=== PATIENT | male | born 1970 | race African-American/Black ===

== ENCOUNTER 2019-02-10 07:53 | Emergency (ER) | payer SELFPAY ==
[~2019-02-10] VITALS: Ht 175.3 cm; Wt 89.0 kg
[2019-02-10] MEDS ORDERED: ONDANSETRON HCL 4MG/2ML INJ IV STA (09:28)
[2019-02-10] MEDS ORDERED: MORPHINE SULFATE 4 MG/ML CPJ (NOT FOR IM USE) IV STA (09:28)
[2019-02-10] MEDS ORDERED: SODIUM CHLORIDE 0.9% 1,000 ML IV ONE (09:28)
[2019-02-10 13:17] LABS: BASOPHILS % 0.9 % (0.0-2.0); EOSINOPHILS % 1.2 % (0.0-5.0); HEMATOCRIT. 45.9 % (42.0-52.0); HEMOGLOBIN. 15.1 g/dL (14.0-18.0); MEAN CORPUSCULAR HEMOGLOBIN 26.3 pg (28.0-32.0); MEAN CORPUSCULAR VOLUME 80.1 fL (80.0-94.0); MEAN PLATELET VOLUME 10.7 fl (7.4-10.4); MONOCYTES % 8.4 % (2.0-8.0); NEUTROPHILS % 62.5 % (40.0-76.0); PLATELET 184 x1000/uL (130-400); RED BLOOD CELL COUNT 5.73 mill/uL (4.7-6.1)
[2019-02-10 13:22] LABS: CHLORIDE 106 mEq/L (98-107); PARTIAL THROMBOPLASTIN TIME 29.9 sec (23.4-31.0); PROTHROMBIN TIME 10.4 sec (9.6-11.0)
[2019-02-10] MEDS ORDERED: IOHEXOL-300 100 ML BOTTLE ONE (13:48)
[2019-02-10] MEDS ORDERED: ENALAPRIL 2.5MG/2ML VIAL 2ML IV ONE (14:45)
[2019-02-10] MEDS ORDERED: KETOROLAC 30MG/ML VIAL IV ONE (14:45)
[2019-02-10] MEDS ORDERED: ENALAPRIL 1.25MG/ML VIAL 1ML IV ONE (15:00)
[2019-02-10] MEDS ORDERED: CLONIDINE 0.1MG TABLET PO ONE (15:15)
[2019-02-10 16:55] VITALS: BP 174/86
== END 2019-02-10 16:56 | disposition home or self-care (01) ==
LOC: ER 08:19
DX: S29.9XXA Unspecified injury of thorax, initial encounter (principal); M79.604 Pain in right leg; I10 Essential (primary) hypertension; E78.00 Pure hypercholesterolemia, unspecified; R51 Headache; V89.2XXA Person injured in unspecified motor-vehicle accident, traffic, initial encounter; Y93.89 Activity, other specified; Y92.89 Other specified places as the place of occurrence of the external cause; Y99.8 Other external cause status
CPT/HCPCS: 36415; 71045; 71260; 72125; 73562; 73590; 73610; 73630; 74177; 80053; 84484; 85025; 85610; 85730; 93005; 96374; 96375; 99284; J1885; J2270; J2405; J3490; J7030; Q9967; Z7610